=== PATIENT | male | born 1980 | race Caucasian/White ===

== ENCOUNTER 2017-03-20 01:24 | Emergency (ER) | payer OTHER ==
[~2017-03-20] VITALS: Ht 177.8 cm; Wt 103.0 kg
[~2017-03-20 01:24] MED LIST: CLEO300C2 PO
[2017-03-20 01:31] VITALS: BP 140/87; PULSE 102; RESP 18; TEMP 98.7; O2SAT 96
[2017-03-20 02:45] LABS: BASOPHIL # 0.1 TH/MM3 (0-0.2); BASOPHIL % 0.5 % (0.0-2.0); EOSINOPHIL # 0.1 TH/MM3 (0-0.4); HEMATOCRIT 46.7 % (39.0-51.0); HEMO FLAGS DIFF FINAL; LYMPH % 35.5 % (9.0-44.0); LYMPHOCYTE # 4.5 TH/MM3 (1.0-4.8); MEAN CELL VOLUME 92.5 FL (80.0-100.0); MEAN CORPUSCULAR HEMOGLOBIN 31.9 PG (27.0-34.0); MEAN CORPUSCULAR HGB CONC 34.5 % (32.0-36.0); MONO % 7.4 % (0.0-8.0); NEUT % 55.6 % (16.0-70.0); PLATELET COUNT 316 TH/MM3 (150-450); RED BLOOD COUNT 5.04 MIL/MM3 (4.50-5.90); RED CELL DISTRIBUTION WIDTH 13.4 % (11.6-17.2); WHITE BLOOD COUNT 12.6 TH/MM3 (4.0-11.0)
--- NOTE | 2017-03-20 03:15 | PD ---
HPI Chief Complaint: Psychiatric Symptoms Time Seen by Provider: 01:55 Travel History International Travel<30 days: No Contact w/Intl Traveler<30days: No Traveled to known affect area: No History of Present Illness HPI The patient is a 37 year old male who presents to the [facility] emergency department with a history of being Feliciano acted prior to arrival. According to the Feliciano act the patient had reportedly made suicidal statements to a significant other and cause property damage in his home. According to the Feliciano act the patient had also been sober from alcohol over the last 7 years and relapsed today. The patient denies any suicidal or homicidal ideations at this time. He reports that he has been Feliciano acted in the past, however he refuses to give any details regarding this. On review of systems, the patient denies any recent fevers, cough, congestion, neck pain, chest pain, shortness of breath, abdominal pain, vomiting, diarrhea, urinary symptoms, or neurologic symptoms. PFSH Past Medical History Narrative Medical The patient's past medical history is significant for alcohol abuse, psoriasis. Medical History: Denies Significant Hx Diminished Hearing: No Tetanus Vaccination: > 5 Years Influenza Vaccination: No Past Surgical History Narrative Surgical The patient's past surgical history is reportedly none. Surgical History: No Previous Surgery Other Surgery: No Social History Alcohol Use: Yes (12 PACK TODAY) Tobacco Use: Yes (1.5 PPD) Substance Use: Yes (CANNABIS) Allergies-Medications (Allergen,Severity, Reaction): Coded Allergies: No Known Allergies (Verified , 03/20/17) Reported Meds & Prescriptions Reported Meds & Active Scripts Active No Active Prescriptions or Reported Medications Narrative Medication None. Review of Systems Except as stated in HPI: all other systems reviewed are Neg General / Constitutional: No: Fever Eyes: No: Visual changes HENT: No: Headaches Cardiovascular: No: Chest Pain or Discomfort Respiratory: No: Shortness of Breath Gastrointestinal: No: Abdominal Pain Genitourinary: No: Dysuria Musculoskeletal: No: Pain Skin: No Rash Neurologic: No: Weakness, Focal Abnormalities, Change in Mentation, Slurred Speech, Other Psychiatric: Positive: Substance Abuse, No: Depression, Suicidal Ideations, Mood Disorder, Homicidal Ideation Endocrine: No: Polydipsia Hematologic/Lymphatic: No: Easy Bruising Physical Exam Narrative General: The patient is well-developed well-nourished male in no acute distress. Head and Neck exam: Head is normocephalic atraumatic. Eyes: EOMI, pupils are equal round and reactive to light. The patient has conjunctival injection in bilateral eyes. Nose: Midline septum with pink mucous membranes Mouth: Dentition unremarkable. Moist mucus membranes. Posterior oropharynx is not erythematous. No tonsillar hypertrophy. Uvula midline. Airway patent. Neck: No palpable lymphadenopathy. No nuchal rigidity. No thyromegaly. Cardiovascular: Regular rate and rhythm without murmurs, gallops, or rubs. Lungs: Clear to auscultation bilaterally. No wheezes, rhonchi, or rales. Abdomen: Soft, without tenderness to palpation in all 4 quadrants of the abdomen. No guarding, rebound, or rigidity. Normal bowel sounds are audible. No tenderness on palpation of McBurney's point. Extremities: No clubbing, cyanosis, or edema. 2+ pulses in all 4 extremities. No calf tenderness on palpation. Back: No costovertebral angle tenderness to palpation. Neurologic Exam: Grossly nonfocal. Skin Exam: No rash noted. Intact skin that is warm and dry. Data Data Last Documented VS Vital Signs Date Time Temp Pulse Resp B/P Pulse Ox O2 Delivery O2 Flow Rate FiO2 03/20/17 01:31 98.7 102 18 140/87 96 Orders Complete Blood Count With Diff (03/20/17 02:22) Comprehensive Metabolic Panel (03/20/17 02:22) Thyroid Stimulating Hormone (03/20/17 02:22) Urinalysis - C+S If Indicated (03/20/17 02:22) Psych Screen (03/20/17 02:22) Drug Screen, Random Urine (03/20/17 02:22) Alcohol (Ethanol) (03/20/17 04:13) Labs Laboratory Tests Test 03/20/17 03/20/17 02:33 03:38 White Blood Count 12.6 TH/MM3 Red Blood Count 5.04 MIL/MM3 Hemoglobin 16.1 GM/DL Hematocrit 46.7 % Mean Corpuscular Volume 92.5 FL Mean Corpuscular Hemoglobin 31.9 PG Mean Corpuscular Hemoglobin 34.5 % Concent Red Cell Distribution Width 13.4 % Platelet Count 316 TH/MM3 Mean Platelet Volume 9.1 FL Neutrophils (%) (Auto) 55.6 % Lymphocytes (%) (Auto) 35.5 % Monocytes (%) (Auto) 7.4 % Eosinophils (%) (Auto) 1.0 % Basophils (%) (Auto) 0.5 % Neutrophils # (Auto) 7.0 TH/MM3 Lymphocytes # (Auto) 4.5 TH/MM3 Monocytes # (Auto) 0.9 TH/MM3 Eosinophils # (Auto) 0.1 TH/MM3 Basophils # (Auto) 0.1 TH/MM3 CBC Comment DIFF FINAL Differential Comment Sodium Level 138 MEQ/L Potassium Level 4.2 MEQ/L Chloride Level 105 MEQ/L Carbon Dioxide Level 24.7 MEQ/L Anion Gap 8 MEQ/L Blood Urea Nitrogen 12 MG/DL Creatinine 1.12 MG/DL Estimat Glomerular Filtration 73 ML/MIN Rate Random Glucose 92 MG/DL Calcium Level 9.0 MG/DL Total Bilirubin 0.4 MG/DL Aspartate Amino Transf 27 U/L (AST/SGOT) Alanine Aminotransferase 28 U/L (ALT/SGPT) Alkaline Phosphatase 63 U/L Total Protein 8.8 GM/DL Albumin 4.3 GM/DL Thyroid Stimulating Hormone 2.600 uIU/ML 3rd Gen Ethyl Alcohol Level 92 MG/DL Urine Color YELLOW Urine Turbidity CLEAR Urine pH 5.0 Urine Specific [place] 1.013 Urine Protein TRACE mg/dL Urine Glucose (UA) NEG mg/dL Urine Ketones NEG mg/dL Urine Occult Blood NEG Urine Nitrite NEG Urine Bilirubin NEG Urine Urobilinogen LESS THAN 2.0 MG/DL Urine Leukocyte Esterase NEG Urine RBC LESS THAN 1 /hpf Urine WBC 2 /hpf Urine Hyaline Casts 15 /lpf Urine Mucus FEW /lpf Microscopic Urinalysis Comment CULT NOT INDICATED Urine Opiates Screen NEG Urine Barbiturates Screen NEG Urine Amphetamines Screen NEG Urine Benzodiazepines Screen NEG Urine Cocaine Screen NEG Urine Cannabinoids Screen NEG MDM Medical Decision Making Medical Screen Exam Complete: Yes Emergency Medical Condition: Yes Medical Record Reviewed: Yes Differential Diagnosis Substance-induced mood disorder, versus depression with suicidal ideations Narrative Course During the course of the patients emergency department visit, the patients history, examination, and differential diagnosis were reviewed with the patient. The patient had IV access obtained and blood work sent for analysis. The patient was placed on a playground monitor with oximetry and blood pressure monitoring. The patients laboratory studies were reviewed and remarkable for white count 12.6, hemoglobin 16.1, platelets 316 with a normal differential. CMP is remarkable for a GFR 73, total protein 8.8, TSH 2.6, urinalysis is unremarkable. Urine drug screen is negative, alcohol level XCII. The patient has been medically cleared for evaluation by the psychiatric screener under Feliciano act. Diagnosis Primary Impression: Suicidal ideations Additional Impression: Alcohol intoxication Qualified Code: F10.929 - Alcohol intoxication, with unspecified complication Scripts No Active Prescriptions or Reported Meds Isabela Rodriguez MD Mar 20, 2017 03:15
[2017-03-20 03:20] LABS: ALKALINE PHOSPHATASE 63 U/L (45-117); TOTAL BILIRUBIN ADULT 0.4 MG/DL (0.2-1.0)
[2017-03-20 03:21] LABS: ALT (GPT) 28 U/L (12-78); ANION GAP 8 MEQ/L (5-15); AST (GOT) 27 U/L (15-37); BICARBONATE 24.7 MEQ/L (21.0-32.0); BLOOD UREA NITROGEN 12 MG/DL (7-18); CHLORIDE 105 MEQ/L (98-107); GLOMERULAR FILTRATION RATE 73 ML/MIN (>89); SODIUM (NA) 138 MEQ/L (136-145)
[2017-03-20 03:22] LABS: POTASSIUM 4.2 MEQ/L (3.5-5.1)
[2017-03-20 03:56] LABS: BLOOD, URINE NEG (NEG); GLUCOSE,URINE NEG (NEG); HYALINE CAST, URINE 15 /lpf (RARE); KETONE, URINE NEG (NEG); MUCUS URINE FEW /lpf (OCC); NITRITE,URINE NEG (NEG); URINE COLOR YELLOW (YELLW/STRAW)
[2017-03-20 03:57] LABS: COMMENT (UR) CULT NOT INDICATED; CULTURE IF INDICATED CULT NOT INDICATED
[2017-03-20 04:03] LABS: AMPHETAMINE, URINE NEG (NEG); BARBITURATES, URINE NEG (NEG); COCAINE, URINE NEG (NEG)
[2017-03-20 07:05] VITALS: BP 138/81; PULSE 89; RESP 17; TEMP 98.1; O2SAT 99
[2017-03-20 11:30] VITALS: BP 113/55; PULSE 76; RESP 18; O2SAT 98
[2017-03-20] MEDS ORDERED: NICOTINE 14 MG/24 HR PATCH T-DERMAL ONE (18:30)
[2017-03-20 22:00] VITALS: BP 127/67; PULSE 85; RESP 16; TEMP 97.8; O2SAT 95
[2017-03-21 02:00] VITALS: BP 126/79; PULSE 76; RESP 18; TEMP 98.3; O2SAT 99
[2017-03-21 06:00] VITALS: BP 111/58; PULSE 68; RESP 18; TEMP 98.2; O2SAT 98
--- NOTE | 2017-03-21 09:24 | PD ---
History of Present Illness Chief Complaint: Psychiatric Symptoms Time Seen by Provider: 09:05 Travel History International Travel<30 Days: No Contact w/Intl Traveler<30days: No Known affected area: No Legal Status Legal Status: Feliciano Act Feliciano Act Signed By: Blanka Feliciano Act Comment: OFFICER Sudha RAMAN #[phone] History of Present Illness: History of Present Illness HPI The patient is a 37 year old male with history of substance use disorder who presents to the [facility] Ed under a BA initiated by LIYA. According to the Feliciano act the patient had reportedly made suicidal statements to a significant other and cause property damage in his home.This in context of alcohol intoxication. He had been sober x 6 and half years and relapsed earlier in the day. The EMR is reviewed. He was admitted to psychiatry in and treated by Dr. Shoemaker for substance induced mood disorder. BAl on presentation to ED is 92. Patiet was monitored in J pod and presented no suicidality or behavioral concerns. he was allowed to sober up clinically. This morning he is alert, oriented. He is clinically sober. his speech is clear and his gait is steady. he is presenting no symptoms of withdrawal. There is no indication that he is experiencing any psychosis and no balaji. No significant symptom of depression. He denies any suicidal or homicidal ideation , intent or plan. He acknowledges that his use of ETOH prompted the suicidal statements and his agitation. 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 He also is planning on moving out and continuing to work on his sobriety. He has support from his sponsor as well as his friend John. [facility] Past Medical History Medical History: Denies Significant Hx Diminished Hearing: No Tetanus Vaccination: > 5 Years Influenza Vaccination: No Past Surgical History Surgical History: No Previous Surgery Other Surgery: No Psychiatric History Psychiatric History Hx Psychiatric Treatment: COURT ORDERED [facility], WAS THERE FOR FIFTEEN DAYS AT THE AGE OF 17 History of Inpatient Treatment: No Guns or firearms in home: No Social History Single male who was living with his fiancee x 8 years. He owns his own [employer] business. Hx Alcohol Use: Yes (12 PACK TODAY) Hx Tobacco Use: Yes (1.5 PPD) Hx Substance Use: Yes (CANNABIS) Substance Use Type: Alcohol Other Substances Used: RELAPSED AFTER 7 YEARS Hx of Substance Use Treatment: No Family Psychiatric History Negative Allergies-Medications (Allergen,Severity, Reaction): Coded Allergies: No Known Allergies (Verified , 03/20/17) Reported Meds & Prescriptions Reported Meds & Active Scripts Active No Active Prescriptions or Reported Medications Review of Systems Except as stated in HPI: all other systems reviewed are Neg Exam Alert: Yes [place]: Person (ox4) Mood: Calm Affect: Appropriate Speech: Clear, Logical Eye Contact: Normal Delusions: No Suicidal: Ideation (negative) Homicidal: Ideation (negative) Insight/Judgement fair. Not impaired MDM Medical Decision Making Medical Record Reviewed: Yes Assessment/Plan 37 year old male with history of substance use disorder who presented under a BA after he became agitated and made suicidal threats in context of alcohol use after an extended period of sobriety. Lift BA. Discharge home. Continue with AA. Orders Diet Regular Basic (03/20/17 Lunch) Diet Regular Basic (03/20/17 Dinner) Nicotine 14 Mg Patch.24 Hr (Habitrol 14 (03/20/17 18:30) Diet Regular Basic (03/21/17 Breakfast) Results Vital Signs Date Time Temp Pulse Resp B/P Pulse Ox O2 Delivery O2 Flow Rate FiO2 03/21/17 06:00 98.2 68 18 111/58 98 Room Air 03/21/17 02:00 98.3 76 18 126/79 99 Room Air 03/20/17 22:00 97.8 85 16 127/67 95 Room Air 03/20/17 11:30 76 18 113/55 98 Room Air Diagnosis Primary Impression: Alcohol intoxication Ruled Out: Suicidal ideations Psychiatrically Cleared: Yes Med/ Other Pt Specific Info: No Meds Exist/No RX given Prescriptions No Active Prescriptions or Reported Meds Disposition: 01 DISCHARGE HOME Condition: Stable Problem Qualifiers Primary Impression: Alcohol intoxication Qualified Code: F10.920 - Alcohol intoxication, uncomplicated oRnda Leblanc [facility] Mar 21, 2017 09:24
== END 2017-03-21 10:09 | disposition home or self-care (01) ==
LOC: NEPE 01:24 → NEPJ 03-21 10:09
DX: F10.920 Alcohol use, unspecified with intoxication, uncomplicated (principal); R45.851 Suicidal ideations; F17.210 Nicotine dependence, cigarettes, uncomplicated
CPT/HCPCS: 80053; 80307; 81001; 84443; 85025; 99284